=== PATIENT | male | born 1945 | race American Indian/Alaskan Native ===

== ENCOUNTER 2016-12-26 16:03 | Emergency (ER) | payer MEDICARE ==
--- NOTE | 2016-12-26 17:39 | Emergency Department Report ---
Entered by INDIRA FARR, acting as scribe for AKILA GILLESPIE PA. Chief Complaint: Puncture Wound Stated Complaint: SICK Time Seen by Provider: 12/26/16 16:58 - HPI History of Present Illness: Patient presents to the ED c/o right foot wound pain that began 2 days ago. Reports lower back pain that radiates to his left leg. Rates pain a 10/10 in severity. Notes he had an ultrasound in September 2016 and had negative findings for DVT. - ROS Review of Systems: All system are negative unless stated in HPI above. - Exam Vital Signs: Vital Signs 12/26/16 16:39 Temperature 97.5 F L Pulse Rate 95 H Respiratory 18 Rate Blood Pressure 181/105 O2 Sat by Pulse 100 Oximetry Physical Exam: General: well nourished, well developed, nontoxic in appearance, in no acute distress Back: Positive right paraspinal tenderness. No vertebral tenderness. Extremities: dorsalis pedis pulses are 2+. Black callus present on plantar right hallux Skin: right foot has dusky coloration MSE screening note: Focused history and physical exam performed. Due to findings the following was ordered: ED Medical Decision Making - Medical Decision Making Medical decision making: Patient seen by provider in triage area. Appropriate protocol activated and patient to main ED to be seen by physician. ED Disposition for MSE Condition: Stable This documentation as recorded by the scribe,INDIRA FARR,accurately reflects the service I personally performed and the decisions made by ,AKILA GILLESPIE PA.
[2016-12-26] MEDS ORDERED: TYLENOL PO ONE (21:14)
[2016-12-26] MEDS ORDERED: TORADOL IM ONE (21:14)
--- NOTE | 2016-12-26 21:18 | Emergency Department Report ---
ED General Adult HPI - General Chief complaint: Back Pain/Injury Stated complaint: SICK Time Seen by Provider: 12/26/16 17:08 Source: patient, RN notes reviewed Mode of arrival: Ambulatory Limitations: No Limitations - History of Present Illness Initial comments: This is a 71-year-old male. He is previously unknown to me. Has a past medical history of stroke with reported residual left-sided weakness, possible hypertension and elevated blood pressure, history of substance abuse. The patient presents to the ER with 2 complaints. First complaint is back pain. The back pain is right-sided, paralumbar, and released on the right lower extremity. It has been present on and off for the past 2 months. It went away, and then recently came back a few days ago. There is no bladder or bowel retention or incontinence. There is no chest pain or shortness of breath. There is no saddle anesthesia. There is no sign of any weakness. The patient's next complaint is lesion to the plantar aspect of the right great toe. It is somewhat discolored and somewhat painful. It has been present for one month. There is no redness, pus or streaking. The lesion is not new, worsening or different today. The patient reports that he was in outpatient group, and he was counseled by his group members to come to the ER to "have it checked out." The back pain is achy, radiates down the right lower extremity, increases with range of motion, and decreases with rest. -: Gradual Location: back, right, lower extremity Radiation: extremity Quality: aching Consistency: intermittent Improves with: rest Worsens with: movement Associated Symptoms: rash. denies: confusion, chest pain, cough, diaphoresis, fever/chills, headaches, loss of appetite, malaise, nausea/vomiting, shortness of breath, syncope, weakness - Related Data Home Medications Medication Instructions Recorded Confirmed Last Taken Aspirin [Aspirin BABY CHEW TAB] 162 mg PO QDAY 12/26/16 12/26/16 12/26/16 Duloxetine HCl [Cymbalta] 60 mg PO DAILY 12/26/16 12/26/16 12/26/16 Gabapentin [Neurontin] 300 mg PO BID 12/26/16 12/26/16 12/26/16 Pantoprazole [Protonix] 40 mg PO QDAY 12/26/16 12/26/16 12/26/16 Quetiapine Fumarate [Seroquel] 100 mg PO DAILY 12/26/16 12/26/16 12/26/16 Previous Rx's Medication Instructions Recorded Last Taken Type Ketorolac [Toradol] 10 mg PO Q6H PRN #20 tablet 12/26/16 Unknown Rx Allergies Allergy/AdvReac Type Severity Reaction Status Date / Time haloperidol [From Haldol] Allergy Angioedema Verified 12/26/16 16:45 haloperidol lactate Allergy Angioedema Verified 12/26/16 16:45 [From Haldol] ED Review of Systems ROS: Stated complaint: SICK Other details as noted in HPI Constitutional: denies: fever Eyes: denies: vision change ENT: denies: epistaxis Respiratory: denies: cough Cardiovascular: denies: chest pain Gastrointestinal: denies: abdominal pain Genitourinary: as per HPI. denies: urgency, dysuria Musculoskeletal: back pain Skin: lesions Neurological: paresthesias. denies: abnormal gait ED Past Medical Hx - Past Medical History Hx CVA: Yes (left-sided weakness) Additional medical history: insomia,nuropathy - Social History Smoking Status: Unknown if ever smoked Substance Use Type: None - Medications Home Medications: Home Medications Medication Instructions Recorded Confirmed Last Taken Type Aspirin [Aspirin BABY CHEW TAB] 162 mg PO QDAY 12/26/16 12/26/16 12/26/16 History Duloxetine HCl [Cymbalta] 60 mg PO DAILY 12/26/16 12/26/16 12/26/16 History Gabapentin [Neurontin] 300 mg PO BID 12/26/16 12/26/16 12/26/16 History Ketorolac [Toradol] 10 mg PO Q6H PRN #20 tablet 12/26/16 Unknown Rx Pantoprazole [Protonix] 40 mg PO QDAY 12/26/16 12/26/16 12/26/16 History Quetiapine Fumarate [Seroquel] 100 mg PO DAILY 12/26/16 12/26/16 12/26/16 History ED Physical Exam - General Limitations: No Limitations General appearance: alert, in no apparent distress - Head Head exam: Present: atraumatic, normocephalic - Eye Eye exam: Present: normal appearance, EOMI. Absent: nystagmus - ENT ENT exam: Present: normal exam, normal orophraynx, mucous membranes moist, normal external ear exam - Neck Neck exam: Present: normal inspection, full ROM. Absent: tenderness, meningismus - Respiratory Respiratory exam: Present: normal lung sounds bilaterally. Absent: respiratory distress, wheezes, rales, rhonchi, stridor, chest wall tenderness, accessory muscle use, decreased breath sounds, prolonged expiratory - Cardiovascular Cardiovascular Exam: Present: regular rate, normal rhythm, normal heart sounds. Absent: bradycardia, tachycardia, irregular rhythm, systolic murmur, diastolic murmur, rubs, gallop - GI/Abdominal GI/Abdominal exam: Present: soft, normal bowel sounds. Absent: distended, tenderness, guarding, rebound, rigid, pulsatile mass - Rectal Rectal exam: Present: deferred - Extremities Exam Extremities exam: Present: full ROM, normal capillary refill, other (on the plantar aspect of the right great toe, there is a chronic discoloration, with callus formation, minimal black tissue. The compartments are soft, there is no redness, pus or streaking. There is no pain with passive range of motion of the great toe. Full range of motion to the bilateral hips, knees and ankles.). Absent: tenderness, pedal edema, joint swelling, calf tenderness - Back Exam Back exam: Present: normal inspection, full ROM, paraspinal tenderness. Absent : vertebral tenderness - Neurological Exam Neurological exam: Present: alert, oriented X3, normal gait, other (Extraocular movements intact. Tongue midline. No facial droop. Facial sensation intact to light touch in the V1, V2, V3 distribution bilaterally. 5 and 5 strength in 4 extremities.. Sensation is intact to light touch in 4 extremities.). Absent : motor sensory deficit (sensation intact to light touch, pinprick in 4 extremities. Extensor hallucis longus is intact bilaterally.) - Psychiatric Psychiatric exam: Present: normal affect, normal mood - Skin Skin exam: Present: warm, dry, intact ED Course Vital Signs 12/26/16 12/26/16 12/26/16 16:39 19:46 19:51 Temperature 97.5 F L Pulse Rate 95 H 96 H 93 H Respiratory 18 19 19 Rate Blood Pressure 181/105 174/110 Blood Pressure [Right] O2 Sat by Pulse 100 100 99 Oximetry 12/26/16 12/26/16 12/26/16 19:52 19:55 20:00 Temperature Pulse Rate 95 H 91 H 91 H Respiratory 15 17 16 Rate Blood Pressure 174/110 174/106 Blood Pressure 174/110 [Right] O2 Sat by Pulse 99 98 100 Oximetry 12/26/16 12/26/16 12/26/16 20:29 20:31 20:35 Temperature Pulse Rate 90 92 H 96 H Respiratory 15 19 17 Rate Blood Pressure Blood Pressure [Right] O2 Sat by Pulse 99 99 100 Oximetry 12/26/16 12/26/16 12/26/16 20:41 20:45 20:51 Temperature Pulse Rate 90 89 90 Respiratory 16 13 20 Rate Blood Pressure Blood Pressure [Right] O2 Sat by Pulse 98 100 99 Oximetry 12/26/16 12/26/16 12/26/16 20:55 21:01 22:51 Temperature Pulse Rate 92 H 94 H 83 Respiratory 17 11 L 14 Rate Blood Pressure Blood Pressure [Right] O2 Sat by Pulse 99 100 100 Oximetry 12/26/16 12/26/16 12/26/16 22:55 22:56 23:00 Temperature Pulse Rate 84 83 83 Respiratory 15 11 L 12 Rate Blood Pressure 150/79 137/79 Blood Pressure 150/79 [Right] O2 Sat by Pulse 100 100 100 Oximetry 12/26/16 23:05 Temperature Pulse Rate 81 Respiratory 15 Rate Blood Pressure 137/79 Blood Pressure [Right] O2 Sat by Pulse 99 Oximetry - Reevaluation(s) Reevaluation #1: 12/26/16 21:50 Differential diagnosis: Radiculopathy, AAA, spinal stenosis, compression fracture, chronic wound chronic skin lesion Assessment and plan: 71-year-old male with 2 complaints. Back pain seems to be most likely consistent with radiculopathy. He has no clinical exam or historical features to suggest epidural compression syndrome. There is reproducible paraspinal back pain. Given his advanced age, a noncontrast CT scan is ordered to exclude spinal fracture in AAA, urinalysis is also ordered. The right plantar foot lesion is chronic, does not appear to be acutely infected , does not require incision and drainage at this time, does not require antibiotics. He can follow-up with podiatry for this, he can follow with outpatient wound care center. Reevaluation #2: 12/26/16 23:06 CT scan negative for acute traumatic findings. Constipation, DJD is suggested. Urinalysis negative. Patient resting comfortably. Repeat examination unremarkable. Will be discharged. ED Medical Decision Making - Lab Data Vital Signs 12/26/16 12/26/16 12/26/16 16:39 19:46 19:52 Temperature 97.5 F L Pulse Rate 95 H 96 H 95 H Respiratory 18 19 15 Rate Blood Pressure 181/105 Blood Pressure 174/110 [Right] O2 Sat by Pulse 100 100 99 Oximetry - Radiology Data Radiology results: report reviewed, image reviewed Noncontrast CT scan of the abdomen and pelvis demonstrated no acute disease, DJD , constipation are suggested Critical care attestation.: If time is entered above; I have spent that time in minutes in the direct care of this critically ill patient, excluding procedure time. ED Disposition Clinical Impression: Back pain Disposition: DISCHARGED TO HOME OR SELFCARE Is pt being admited?: No Does the pt Need Aspirin: No Condition: Stable Instructions: Lumbar Disc Herniation (ED), Lumbar Radiculopathy (ED) Additional Instructions: Physical exam findings and history suggested pinched nerve in the lumbar spine. This is suggestive of sciatica/lumbar radiculopathy. CT scan of abdomen and pelvis demonstrated no acute disease that would require emergent intervention. Take the pain medication as directed. When taking the pain medication, do not combine with Motrin, Aleve, ibuprofen or aspirin. Rest and avoid heavy lifting. Follow up with a primary care doctor within the next 7 -10 days. Follow up with the referred wound care center for further care and evaluation of the right plantar foot lesion. Alternatively, he may follow up with a manager internet. I recommended he contact your private insurance company or look on line for local podiatry specialist. Return to the ER right away with new pain, worsened pain, migration of pain, fevers or chills, nausea or vomiting, inability to tolerate liquid feeds. Prescriptions: Ketorolac [Toradol] 10 mg PO Q6H PRN #20 tablet PRN Reason: Pain Referrals: PRIMARY CAREMD [Primary Care Provider] - 3-5 Days [facility] [Outside] - 3-5 Days MARGARITA VILLASENOR MD [Staff Physician] - 3-5 Days
[2016-12-26 21:49] LABS: Bacteria,Urine 1+ /HPF (Negative); Bilirubin,Urine NEG (Negative); Blood,Urine NEG (Negative); Ketones,Urine NEG (Negative); Leukocyte Esterase,Urine TR (Negative); Mucus,Urine FEW /HPF; Nitrite,Urine NEG (Negative); Protein,Urine <15 mg/dL mg/dL (Negative); Urobilinogen,Urine < 2.0 mg/dL (<2.0); WBC,Urine < 1.0 /HPF (0.0-6.0)
--- NOTE | 2016-12-26 23:03 | Cat Scan Report ---
FINAL REPORT EXAM: CT ABDOMEN PELVIS WO CON HISTORY: back pain TECHNIQUE: Helical CT scan through the abdomen and pelvis without contrast. Images are reconstructed in the sagittal and coronal planes. PRIORS: None. FINDINGS: Solid organ and bowel evaluation is limited without intravenous contrast. Bowel evaluation is limited without oral contrast. The lung bases are clear. The liver, gallbladder, pancreas, spleen and adrenal glands appear normal. The kidneys appear grossly normal. There is no evidence of hydronephrosis or urolithiasis. The pelvic organs appear grossly normal. The stomach appears grossly within normal limits. There are no abnormally dilated loops of bowel or acute inflammatory changes. There is a relatively large amount of stool throughout the colon especially in the rectum. A normal-appearing appendix is identified. There is diffuse atherosclerotic calcification in the abdominal aorta and iliac and femoral arteries without aneurysm. The lower thoracic and lumbar vertebrae are normal in height. There is multilevel degenerative facet disease of lumbar spine. IMPRESSION: 1. Question constipation 2. 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
[2016-12-26 23:17] VITALS: BP 137/79
== END 2016-12-26 23:36 | disposition home or self-care (01) ==
LOC: ED 16:03
DX: M54.9 Dorsalgia, unspecified (principal); I63.9 Cerebral infarction, unspecified; Z79.82 Long term (current) use of aspirin; Z88.8 Allergy status to other drugs, medicaments and biological substances; X58.XXXA Exposure to other specified factors, initial encounter; Y93.89 Activity, other specified; Y99.9 Unspecified external cause status; Y92.89 Other specified places as the place of occurrence of the external cause
CPT/HCPCS: 74176; 81001; 96372; 99284; J1885